=== PATIENT | female | born 1980 | race Two or more races ===

== ENCOUNTER 2021-10-12 21:55 | Emergency (ER) | payer OTHER ==
[~2021-10-12 21:55] MED LIST: CYCLOBENZAPRINE10 MG PO; MEDROL 4MG DOSEP4 MG PO; NAPROSYN375 MG PO
[2021-10-12] MEDS ORDERED: AUGMENTIN 875-1 EACH PO (23:40)
== END 2021-10-12 23:53 | disposition home or self-care (01) ==
LOC: FER 21:55
DX: K08.89 Other specified disorders of teeth and supporting structures (principal)
CPT/HCPCS: 99282; J1885